=== PATIENT | female | born 1985 | race Caucasian/White ===

== ENCOUNTER 2017-02-11 17:16 | Emergency (ER) | payer BC ==
[2017-02-11 17:39] VITALS: BP 134/95
[2017-02-11] MEDS ORDERED: Sodium Chloride 0.9% 10 ML Syringe FLUSH PRN (18:07)
--- NOTE | 2017-02-11 18:18 | EDM.PDOC ---
ED HPI GI/ABDOMINAL - General Chief Complaint: Abdominal Pain Stated Complaint: ABDOMINAL AND BACK PAIN Time Seen by Provider: 02/11/17 18:08 Source of Information: Reports: Patient History Limitations: Reports: No limitations - History of Present Illness INITIAL COMMENTS - FREE TEXT/NARRATIVE: Patient presents for evaluation and treatment of abdominal and back pain. Patient reports that the symptoms started on Wednesday, about 3 or 4 days ago. Patient reports that the pain started on the right side of her back and now extends into her entire abdomen. States the pain and been coming and going but now over the last 2 hours they have been constant. She states the pain is increasing in severity which prompted her visit to the ER. Patient reports she has not had anything to eat since yesterday. She has not had much to drink today due to the pain. Her current symptoms include right-sided back pain, abdominal pain, malaise, bloating, chills and diarrhea. She reports that she had one episode of loose stools today. She denies any nausea, vomiting, fevers, chills, dysuria, hematuria, black or tarry stools. She is unsure if she is having constipation. She reports that her last bowel movement was today and another stool the day before yesterday. She has taken a stool softener recently. She does not take any medications prior to arrival in the ER. Patient reports her last menstrual cycle was several weeks ago. She did take a urine test today which was negative. - Related Data Allergies/ADRs: Allergies Allergy/AdvReac Type Severity Reaction Status Date / Time codeine Allergy Vomiting Verified 02/11/17 17:34 latex Allergy Other Verified 02/11/17 17:34 Penicillins Allergy Hives Verified 02/11/17 17:34 Home Meds: Home Meds Magnesium Citrate [Citrate of Magnesia] 296 ml PO ONETIME #1 bottle 02/11/17 [Rx ] Past Medical History Genitourinary History: Reports: Renal calculus [employer] History: Reports: - Past Surgical History HEENT Surgical History: Reports: Tonsillectomy Social & Family History - Tobacco Use Smoking Status *Q: Former Smoker - Caffeine Use Caffeine Use: Reports: Coffee - Recreational Drug Use Recreational Drug Use: No ED ROS GENERAL - Review of Systems Review Of Systems: See Below Constitutional: Reports: malaise, decreased appetite. Denies: fever GI/Abdominal: Reports: Abdominal pain, Diarrhea (x1 episode today), Other ( bloating). Denies: Bloody stool, Hematochezia, Melena, Nausea, Vomiting : Reports: no symptoms. Denies: dysuria, hematuria ED EXAM, GI/ABD - Physical Exam Exam: See Below Exam Limited By: No limitations General Appearance: alert, WD/WN, mild distress Throat/Mouth: Normal lips, Normal voice, No airway compromise Respiratory/Chest: no respiratory distress, lungs clear, normal breath sounds Cardiovascular: normal peripheral pulses, regular rate, rhythm, no murmur GI/Abdominal: normal bowel sounds, soft, non tender Back Exam: normal inspection Neurological: alert, oriented, normal cognition Psychiatric: normal affect, normal mood Skin Exam: Warm, Dry, Normal color Course - Vital Signs Last Recorded V/S: Last Vital Signs Temp 36.7 C 02/11/17 17:35 Pulse 74 02/11/17 17:35 Resp 16 02/11/17 17:35 BP 134/95 H 02/11/17 17:35 Pulse Ox 100 02/11/17 17:35 - Orders/Labs/Meds Labs: Laboratory Tests 02/11/17 02/11/17 02/11/17 Range/Units 18:05 18:05 18:35 WBC 9.91 (3.98-10.04) K/mm3 RBC 4.62 (3.98-5.22) M/mm3 Hgb 13.9 (11.2-15.7) gm/L Hct 40.3 (34.1-44.9) % MCV 87.2 (79.4-94.8) fl MCH 30.1 (25.6-32.2) pg MCHC 34.5 (32.2-35.5) g/dl RDW Std Deviation 39.4 (36.4-46.3) fL Plt Count 310 (182-369) K/mm3 MPV 8.9 L (9.4-12.3) fl Neut % (Auto) 51.8 (34.0-71.1) % Lymph % (Auto) 34.1 (19.3-51.7) % Gray % (Auto) 8.8 (4.7-12.5) % Eos % (Auto) 4.9 (0.7-5.8) Baso % (Auto) 0.2 (0.1-1.2) % Neut # (Auto) 5.13 (1.56-6.13) K/mm3 Lymph # (Auto) 3.38 (1.18-3.74) K/mm3 Gray # (Auto) 0.87 H (0.24-0.36) K/mm3 Eos # (Auto) 0.49 H (0.04-0.36) K/mm3 Baso # (Auto) 0.02 (0.01-0.08) K/mm3 Sodium 140 (136-145) mEq/L Potassium 3.7 (3.5-5.1) mEq/L Chloride 103 (98-107) mEq/L Carbon Dioxide 25 (21-32) mEq/L Anion Gap 15.7 H (5-15) BUN 10 (7-18) mg/dL Creatinine 0.8 (0.55-1.02) mg/dL Est Cr Clr Drug Dosing 87.99 mL/min Estimated GFR (MDRD) > 60 (>60) mL/min BUN/Creatinine Ratio 12.5 L (14-18) Glucose 86 (74-106) mg/dL Calcium 9.4 (8.5-10.1) mg/dL Total Bilirubin 0.4 (0.2-1.0) mg/dL AST 16 (15-37) U/L ALT 22 (14-59) U/L Alkaline Phosphatase 75 (46-116) U/L C-Reactive Protein 1.0 (<1.0) mg/dL Total Protein 7.6 (6.4-8.2) g/dl Albumin 4.4 (3.4-5.0) g/dl Globulin 3.2 gm/dL Albumin/Globulin Ratio 1.4 (1-2) Lipase 105 (73-393) U/L HCG, Quant < 1.0 mIU/mL Urine Color Yellow (Yellow) Urine Appearance Clear (Clear) Urine pH 7.0 (5.0-8.0) Ur Specific [place] 1.015 (1.005-1.030) Urine Protein Negative (Negative) Urine Glucose (UA) Negative (Negative) Urine Ketones Negative (Negative) Urine Occult Blood Negative (Negative) Urine Nitrite Negative (Negative) Urine Bilirubin Negative (Negative) Urine Urobilinogen 0.2 (0.2-1.0) Ur Leukocyte Esterase Negative (Negative) Urine RBC 0-5 (0-5) /hpf Urine WBC 0-5 (0-5) /hpf Ur Squamous Epith Cells 10-20 H (0-5) /hpf Urine Bacteria Few (FEW) /hpf Urine Mucus Not seen (FEW) /hpf Meds: Medications Discontinued Medications Generic Name Dose Route Start Last Admin Trade Name Henri PRN Reason Stop Dose Admin Ketorolac Tromethamine 30 mg 02/11/17 19:14 02/11/17 19:30 Toradol IVPUSH 02/11/17 19:15 30 mg ONETIME ONE Administration Sodium Chloride 10 ml 02/11/17 18:07 02/11/17 18:18 Saline Flush FLUSH 10 ml ASDIRECTED PRN Administration Keep Vein Open - Radiology Interpretation Free Text/Narrative:: flat plate of the abdomen shows increased stool to the right ascending colon and stool in the descending and sigmoid colon - Re-Assessments/Exams Free Text/Narrative Re-Assessment/Exam: 02/11/17 20:35 Labs have returned. Wbc is normal at 9.91, hgb is 13.9 and platelets of 310. CRP is 1.0. HCG is less than 1.0. Sodium is 140, potassium 3.7, chloride is 103, anion gap is 15.7 and glucose is 86. Lipase is 105. UA is negative for any blood, glucose, nitrates, leukocytes or ketones. I discussed the labs and imaging results patient. I do not feel the need to CT the patient at this time. I feel that her discomfort is likely from constipation. I will prescribe her some mag citrate for bowel cleanout. Will discharge home. Discharge instructions as documented. Departure - Departure Time of Disposition: 20:32 Disposition: Home, Self-Care 01 Condition: fair Clinical Impression: Constipation Prescriptions: Magnesium Citrate [Citrate of Magnesia] 296 ml PO ONETIME #1 bottle Instructions: Constipation, Adult, [id number] Referrals: PCP,None [Primary Care Provider] - Forms: ED Department Discharge, Return to Work/School Form Additional Instructions: Drink 1 bottle of mag citrate over 1-2 hours. Wear loose pants and be near a toilet. Drink plenty of fluids. If your symptoms continue after bowel clean out, follow-up with family med in 1- 2 weeks. Recommend [facility] or [facility]. Call [phone] to schedule with one of them. Please return to the ER should your symptoms change or worsen.
[2017-02-11] MEDS ORDERED: Ketorolac 30 MG/ML SDV IVPUSH ONE (19:14)
--- NOTE | 2017-02-12 09:59 | CR ---
Abdomen: Supine view of the abdomen was obtained. Comparison: No previous study. Bowel gas pattern is normal. No abnormal calcifications or soft tissue abnormality is seen. Bony structures are unremarkable. Impression: 1. Nothing acute is identified on supine abdominal x-ray. Diagnostic code #1
== END 2017-02-11 21:22 | disposition home or self-care (01) ==
LOC: JD.ED 17:16
DX: K59.00 Constipation, unspecified (principal); Z98.890 Other specified postprocedural states; Z87.891 Personal history of nicotine dependence; Z88.0 Allergy status to penicillin; Z88.5 Allergy status to narcotic agent; Z91.040 Latex allergy status
CPT/HCPCS: 36415; 74000; 80053; 81001; 83690; 84702; 85025; 86140; 96374; 99284; J1885; J7050